=== PATIENT | female | born 1975 | race Caucasian/White ===

== ENCOUNTER 2022-03-09 20:07 | Inpatient (IN) | payer BC, MEDICAID, OTHER ==
[~2022-03-09] VITALS: Ht 149.9 cm; Wt 81.6 kg
[2022-03-09] MEDS ORDERED: MORPHINE SULFATE 4 MG/ML CPJ (NOT FOR IM USE) IV STA (20:38)
[2022-03-09 21:34] LABS: BASOPHILS % 0.6 % (0.0-2.0); EOSINOPHILS % 1.1 % (0.0-5.0); HEMATOCRIT. 38.2 % (36.0-48.0); HEMOGLOBIN. 12.2 g/dL (12.0-16.0); LYMPHOCYTES % 26.7 % (20.0-50.0); MEAN CORPUSCULAR HEMOGLOBIN 23.8 pg (28.0-32.0); MEAN CORPUSCULAR VOLUME 74.5 fL (81.0-99.0); MEAN PLATELET VOLUME 8.4 fl (7.4-10.4); MONOCYTES % 8.7 % (2.0-8.0); NEUTROPHILS % 62.9 % (40.0-76.0); PLATELET 212 x1000/uL (130-400); RED BLOOD CELL COUNT 5.13 mill/uL (4.2-5.4); RED CELL DISTRIBUTION WIDTH 15.3 % (11.6-14.6)
[2022-03-09 21:40] LABS: CHLORIDE 111 mEq/L (98-107)
[2022-03-09 21:42] LABS: HCG SCREEN NEGATIVE
[2022-03-09 21:49] LABS: ETHANOL BLOOD < 10 mg/dL
[2022-03-09] MEDS ORDERED: PREDNISONE 20MG TABLET PO ONE (22:15)
[2022-03-09] MEDS ORDERED: ONDANSETRON HCL 4MG/2ML INJ IV ONE (22:15)
[2022-03-09] MEDS ORDERED: METRONIDAZOLE 500 MG PREMIX 100 ML IV NR (23:30)
[2022-03-09] MEDS ORDERED: CEFTRIAXONE 1 G PREMIX 50 ML IV NR (23:30)
[2022-03-10] MEDS ORDERED: DIPHENHYDRAMINE 50MG/ML VIAL IV PRN (01:00)
[2022-03-10] MEDS ORDERED: ONDANSETRON HCL 4MG/2ML INJ IV PRN (01:00)
[2022-03-10] MEDS ORDERED: PIPERACILLIN/TAZ 3.375G PREMIX 50 ML IV SCH (01:00)
[2022-03-10] MEDS ORDERED: ACETAMINOPHEN 325MG TABLET PO PRN ×2 (01:00)
[2022-03-10] MEDS ORDERED: DEXTROSE 50% WATER 50ML SYRINGE IV PRN (01:00)
[2022-03-10] MEDS: SODIUM CHLORIDE 0.9% 1,000 ML IV SCH ×3 (01:46→20:15)
[2022-03-10] MEDS: HYDROMORPHONE HCL/PF 2MG/ML CPJ IV PRN ×3 (03:59→20:15)
[2022-03-10 04:00] VITALS: BP 119/70
[2022-03-10] MEDS: KCL 20MEQ/100ML PREMIX 100 ML IV SCH ×2 (06:42→07:59)
[2022-03-10] MEDS: BLOOD SUGAR DIAGNOSTIC STRIP TEST SCH ×4 (07:37→20:15)
[2022-03-10] MEDS: INSULIN LISPRO 100 UNITS/ML SUBCUT SCH ×4 (07:50→20:25)
[2022-03-10 08:00] VITALS: BP 120/74
[2022-03-10] MEDS ORDERED: PNEUMOCOCCAL VACCINE IM ONE (08:00)
[2022-03-10] MEDS: PANTOPRAZOLE SODIUM 40 MG/VIAL IV SCH (08:53)
[2022-03-10] MEDS ORDERED: PIPERACILLIN/TAZOBACTAM 3.375 G in DEXTROSE 5% WATER 50 ML IV SCH (10:00)
[2022-03-10 12:00] VITALS: BP 114/72
[2022-03-10] MEDS: PIPERACILLIN/TAZOBACTAM 3.375 G in DEXTROSE 5% WATER 50 ML IV SCH ×2 (13:26→22:29)
[2022-03-10 16:00] VITALS: BP 101/55
[2022-03-10 20:00] VITALS: BP 120/76
[2022-03-11] VITALS: BP 104/66
[2022-03-11 04:00] VITALS: BP 101/51
[2022-03-11] MEDS: PIPERACILLIN/TAZOBACTAM 3.375 G in DEXTROSE 5% WATER 50 ML IV SCH ×3 (06:24→22:25)
[2022-03-11] MEDS: HYDROMORPHONE HCL/PF 2MG/ML CPJ IV PRN ×4 (06:26→22:01)
[2022-03-11] MEDS: SODIUM CHLORIDE 0.9% 1,000 ML IV SCH ×2 (06:28→16:52)
[2022-03-11] MEDS: BLOOD SUGAR DIAGNOSTIC STRIP TEST SCH ×4 (07:21→21:00)
[2022-03-11] MEDS: INSULIN LISPRO 100 UNITS/ML SUBCUT SCH ×4 (07:50→21:00)
[2022-03-11 07:53] LABS: BASOPHILS % 0.8 % (0.0-2.0); EOSINOPHILS % 1.8 % (0.0-5.0); HEMATOCRIT. 36.1 % (36.0-48.0); HEMOGLOBIN. 11.6 g/dL (12.0-16.0); LYMPHOCYTES % 27.8 % (20.0-50.0); MEAN CORPUSCULAR VOLUME 74.7 fL (81.0-99.0); MEAN PLATELET VOLUME 8.7 fl (7.4-10.4); MONOCYTES % 9.4 % (2.0-8.0); NEUTROPHILS % 60.2 % (40.0-76.0); PLATELET 208 x1000/uL (130-400); RED BLOOD CELL COUNT 4.84 mill/uL (4.2-5.4); RED CELL DISTRIBUTION WIDTH 15.8 % (11.6-14.6)
[2022-03-11 08:00] VITALS: BP 104/64
[2022-03-11 08:06] LABS: CHLORIDE 110 mEq/L (98-107)
[2022-03-11] MEDS: PANTOPRAZOLE SODIUM 40 MG/VIAL IV SCH (08:17)
[2022-03-11 12:00] VITALS: BP 133/77
[2022-03-11 16:00] VITALS: BP 115/68
[2022-03-11] MEDS ORDERED: NALOXONE HCL 0.4MG/ML VIAL IV PRN (16:45)
[2022-03-11 20:00] VITALS: BP 139/55
[2022-03-11] MEDS ORDERED: HYDROMORPHONE HCL/PF 2MG/ML CPJ IV NR (22:30)
[2022-03-12] VITALS: BP 109/62
[2022-03-12] MEDS: SODIUM CHLORIDE 0.9% 1,000 ML IV SCH ×2 (03:00→12:26)
[2022-03-12] MEDS: PIPERACILLIN/TAZOBACTAM 3.375 G in DEXTROSE 5% WATER 50 ML IV SCH ×3 (06:00→21:22)
[2022-03-12] MEDS ORDERED: BUPIVACAINE HCL 0.5% (5MG/ML) 50ML ONE (06:45)
[2022-03-12] MEDS ORDERED: SKIN ADHESIVE 0.7 GM EA TOP ONE ×2 (06:45)
[2022-03-12] MEDS: BLOOD SUGAR DIAGNOSTIC STRIP TEST SCH ×4 (07:20→21:08)
[2022-03-12] MEDS: INSULIN LISPRO 100 UNITS/ML SUBCUT SCH ×4 (07:50→21:11)
[2022-03-12] MEDS: PANTOPRAZOLE SODIUM 40 MG/VIAL IV SCH (08:44)
[2022-03-12] MEDS ORDERED: FENTANYL CITRATE/PF 50MCG/ML 2ML VIAL ONE ×2 (09:31→11:54)
[2022-03-12] MEDS ORDERED: PROPOFOL 200MG/20ML VIAL IV ONE (09:31)
[2022-03-12] MEDS ORDERED: MIDAZOLAM HCL 2 MG/2 ML VIAL ONE (09:31)
[2022-03-12] MEDS ORDERED: ROCURONIUM BROMIDE 10MG/ML VIAL 5ML IV ONE (09:31)
[2022-03-12] MEDS ORDERED: MORPHINE SULFATE 2 MG/ML CPJ (NOT FOR IM USE) IV PRN (10:30)
[2022-03-12] MEDS ORDERED: ONDANSETRON HCL 4MG/2ML INJ IV PRN ×2 (10:30→11:45)
[2022-03-12] MEDS ORDERED: HYDROCODONE/ACETAMINOPHEN 5/325MG TABLET PO PRN ×2 (10:30)
[2022-03-12] MEDS ORDERED: MORPHINE SULFATE 4 MG/ML CPJ (NOT FOR IM USE) IV PRN (10:30)
[2022-03-12] MEDS ORDERED: LIDOCAINE HCL 1% 20ML VIAL (Pyxis) INJ ONE (10:42)
[2022-03-12] MEDS ORDERED: GLYCOPYRROLATE 0.2 MG/ML 2ML VIAL ONE (11:39)
[2022-03-12] MEDS ORDERED: HYDROMORPHONE HCL/PF 2MG/ML CPJ IV PRN (11:45)
[2022-03-12] MEDS ORDERED: FENTANYL CITRATE/PF 50MCG/ML 2ML VIAL IV PRN (11:45)
[2022-03-12] MEDS ORDERED: MEPERIDINE HCL/PF 25MG/ML CPJ IV PRN (11:45)
[2022-03-12] MEDS ORDERED: KETOROLAC 30MG/ML VIAL ONE (11:55)
[2022-03-12] MEDS ORDERED: ONDANSETRON HCL 4MG/2ML INJ ONE (11:55)
[2022-03-12] MEDS: DEXT 5%/0.45% NACL KCL 20MEQ/L 1,000 ML IV SCH ×2 (12:00→21:22)
[2022-03-12] MEDS: SODIUM CHLORIDE 0.9% INJ 3ML FLUSH IVF SCH ×2 (14:22→21:22)
[2022-03-12] MEDS: HYDROMORPHONE HCL/PF 2MG/ML CPJ IV PRN ×3 (14:42→23:16)
[2022-03-12 20:00] VITALS: BP 104/72
[2022-03-13] VITALS: BP 92/58
[2022-03-13 04:00] VITALS: BP 108/71
[2022-03-13] MEDS: HYDROMORPHONE HCL/PF 2MG/ML CPJ IV PRN (05:16)
[2022-03-13] MEDS: PIPERACILLIN/TAZOBACTAM 3.375 G in DEXTROSE 5% WATER 50 ML IV SCH ×2 (05:48→13:11)
[2022-03-13] MEDS: SODIUM CHLORIDE 0.9% INJ 3ML FLUSH IVF SCH ×2 (05:49→14:23)
[2022-03-13] MEDS: INSULIN LISPRO 100 UNITS/ML SUBCUT SCH ×2 (07:50→13:23)
[2022-03-13] MEDS: BLOOD SUGAR DIAGNOSTIC STRIP TEST SCH ×2 (07:53→12:30)
[2022-03-13 08:00] VITALS: BP 102/67
[2022-03-13] MEDS: DEXT 5%/0.45% NACL KCL 20MEQ/L 1,000 ML IV SCH (08:11)
[2022-03-13] MEDS: SODIUM CHLORIDE 0.9% 1,000 ML IV SCH ×2 (08:13→08:15)
[2022-03-13] MEDS: PANTOPRAZOLE SODIUM 40 MG/VIAL IV SCH (08:14)
[2022-03-13 12:00] VITALS: BP 116/78
[2022-03-13 14:42] VITALS: BP 116/78
[2022-03-13] MEDS ORDERED: FAMOTIDINE 20MG/2ML VIAL IV SCH (21:00)
== END 2022-03-13 15:37 | disposition home or self-care (01) | DRG 854 ==
LOC: ER 20:07 → 6EST 23:25 → EDBEDREQSVC 03-10 00:13 → EDBEDREQ 03-10 00:13 → EDBEDREQTM 03-10 00:13 → EDBEDREQDT 03-10 00:13 → ENRESERV 03-10 02:24
PROVIDERS: ADMIT Internal Medicine; ATTEND Internal Medicine
PROC: 0FT44ZZ Resection of Gallbladder, Percutaneous Endoscopic Approach (ICD-10-PCS; principal; 2022-03-12)
DX: A41.9 Sepsis, unspecified organism (principal); K80.62 Calculus of gallbladder and bile duct with acute cholecystitis without obstruction; K76.0 Fatty (change of) liver, not elsewhere classified; E11.9 Type 2 diabetes mellitus without complications; E78.00 Pure hypercholesterolemia, unspecified; G43.909 Migraine, unspecified, not intractable, without status migrainosus; Z20.822 Contact with and (suspected) exposure to COVID-19; Z86.73 Personal history of transient ischemic attack (TIA), and cerebral infarction without residual deficits; Z90.49 Acquired absence of other specified parts of digestive tract
CPT/HCPCS: 36415; 71045; 74181; 76700; 78227; 80053; 80320; 82962; 83036; 83605; 84484; 84703; 85025; 87426; 88304; 90732; 93005; 99291; A9537; C9113; C9803; J0696; J1170; J1815; J1885; J2250; J2270; J2405; J2543; J2704; J3010; J3480; J3490; J7030; J7060; J7512; G0480